=== PATIENT | female | born 1990 | race Caucasian/White ===

== ENCOUNTER → 2024-04-27 14:51 | Outpatient (REF) | payer BC, SELFPAY | LOC: PNTC 14:51 | PROVIDERS: ATTENDING PHYSICIAN Obstetrics & Gynecology | DX: O34.219 Maternal care for unspecified type scar from previous cesarean delivery (principal); O43.219 Placenta accreta, unspecified trimester | CPT/HCPCS: 76811; 93976 ==

== ENCOUNTER → 2024-08-02 15:02 | Outpatient (REF) | payer BC, SELFPAY | LOC: PNTC 15:02 | PROVIDERS: ATTENDING PHYSICIAN Obstetrics & Gynecology | DX: O34.211 Maternal care for low transverse scar from previous cesarean delivery (principal) | CPT/HCPCS: 76816 ==

== ENCOUNTER 2024-09-07 06:03 | Inpatient (IN) | payer BC, SELFPAY ==
[2024-09-07 06:10] VITALS: BP 113/67; BMI 28.1
[2024-09-07 06:36] LABS: Hematocrit 35.4 % (37.0-47.0); Hemoglobin 12.8 g/dL (12.0-16.0); Mean Corp Hgb Conc. 36.2 g/dL (33.0-37.0); Mean Corpuscular Hgb 32.4 pg (27.0-31.0); Mean Corpuscular Volume 89.6 fL (81.0-99.0); Mean Platelet Volume 9.6 fL (7.4-10.4); Platelet Count 194 10^3/uL (130-400); Red Blood Cell Count 3.95 10^6/uL (4.20-5.40); Red Cell Dist. Width 14.1 % (11.5-14.5); White Blood Cell Count 6.6 10^3/uL (4.8-10.8)
[2024-09-07] MEDS: BICITRA 30 ML PO (07:14)
[2024-09-07] MEDS: TYLENOL 1000 MG PO (07:14)
[2024-09-07] MEDS: ANCEF 10 IV (10:39)
[2024-09-07] MEDS: PERCOCET 5/325 1 TABLET PO (20:51)
[2024-09-08] MEDS: PERCOCET 5/325 1 TABLET PO ×6 (03:13→21:22)
[2024-09-08] MEDS: MYLICON 80 MG PO ×4 (03:13→21:22)
[2024-09-08 03:41] LABS: Hematocrit 33.4 % (37.0-47.0); Hemoglobin 11.5 g/dL (12.0-16.0); Mean Corp Hgb Conc. 34.4 g/dL (33.0-37.0); Mean Platelet Volume 9.6 fL (7.4-10.4); Platelet Count 187 10^3/uL (130-400); Red Blood Cell Count 3.59 10^6/uL (4.20-5.40); Red Cell Dist. Width 14.2 % (11.5-14.5); White Blood Cell Count 13.7 10^3/uL (4.8-10.8)
[2024-09-08] MEDS: PRENATAL PLUS 1 TABLET PO (08:55)
[2024-09-08] MEDS: SENOKOT-S 1 TABLET PO (08:55)
[2024-09-08] MEDS: ZOLOFT 75 MG PO (08:56)
--- NOTE | 2024-09-08 09:16 | W.PN.ANS.POP ---
Anesthesia Post Operative
- Anesthesia Post Op Note
Vital Signs Stable-See Nursing Note: Yes (walking around room, denies any post c/s anesthesia issues.)
Airway Patent: Yes
Adequate Pain Control: Yes
Change in Mental Status: No
Current Postoperative Nausea & Vomiting: No
Anesthesia Complications: No
General Anesthetic Recall: No
Unplanned Admission: No
Post Op Hydration Adequate: Yes
[2024-09-08] MEDS: MOTRIN 600 MG PO (20:46)
[2024-09-09] MEDS: PERCOCET 5/325 1 TABLET PO (03:07)
[2024-09-09] MEDS: MOTRIN 600 MG PO ×4 (03:07→21:31)
[2024-09-09] MEDS: MYLICON 80 MG PO ×2 (03:12→23:15)
[2024-09-09] MEDS: TYLENOL 650 MG PO ×3 (09:05→21:31)
[2024-09-09] MEDS: PRENATAL PLUS 1 TABLET PO (09:06)
[2024-09-09] MEDS: ZOLOFT 75 MG PO (09:07)
[2024-09-10] MEDS: TYLENOL 650 MG PO ×2 (04:38→12:09)
[2024-09-10] MEDS: MOTRIN 600 MG PO ×2 (04:38→12:09)
[2024-09-10] MEDS: PRENATAL PLUS 1 TABLET PO (07:53)
[2024-09-10] MEDS: MYLICON 80 MG PO (07:53)
[2024-09-10] MEDS: ZOLOFT 75 MG PO (07:54)
[2024-09-10] MEDS: SENOKOT-S 1 TABLET PO (07:54)
--- NOTE | 2024-09-10 12:15 | W.DS.TRANS ---
DC Summary - Family Medicine Resident
-
Discharge Instructions:
Discharge Diagnosis/Procedures delivered by csection
Diet Regular
Activity No strenuous activity
Driving Restrictions No driving for 2 weeks
Bathing Restrictions OK to Shower
Instructions:
Stand-Alone Forms: LDRP Delivery
Changes to Home Medications: No
Discharge Medications:
DC Medications w/original date entered in [facility] IP
Zoloft 75 mg PO DAILY 09/07/24
prenat.vits,orin,hcn-buqt-tpxgd 1 tab PO DAILY 09/07/24
acetaminophen 325 mg tablet 650 mg (2 x 325 mg) PO Q4HPRN PRN mild pain #0 tabs 09/10/24
ibuprofen 600 mg tablet 600 mg PO Q6HPRN PRN cramps #0 tabs 09/10/24
Home Medication Changes
Pending Results: Yes
Additional Pending Results:
pathology
Total time spent discharging patient (in min): 30
[2024-09-10 12:58] LABS: Syphilis/T. pallidum Ab Reflex Negative (Negative)
== END 2024-09-10 15:26 | disposition home or self-care (01) | DRG 785 ==
LOC: LDRP 06:03
PROVIDERS: Obstetrics & Gynecology; ADMITTING PHYSICIAN Obstetrics & Gynecology
PROC: 10D00Z1 Extraction of Products of Conception, Low, Open Approach (ICD-10-PCS; 2024-09-07)
PROC: 0UB70ZZ Excision of Bilateral Fallopian Tubes, Open Approach (ICD-10-PCS; 2024-09-07)
DX: O34.211 Maternal care for low transverse scar from previous cesarean delivery (principal); Z3A.39 39 weeks gestation of pregnancy; Z37.0 Single live birth; Z30.2 Encounter for sterilization
CPT/HCPCS: 88302; 36415; 85027; 86780; 86850; 86900; 86901; C1765